=== PATIENT | female | born 1955 | race Caucasian/White ===

== ENCOUNTER 2022-03-06 11:11 | Outpatient (REF) | payer MEDICARE, SELFPAY ==
[2022-03-06 13:43] LABS: MANUAL DIFF FLAG NO
[2022-03-06 14:00] LABS: Basophils Absolute Auto 0.1 X10*3/uL (0.0-0.2); Basophils Percent Auto 1.1 % (0-2); Eosinophils Absolute Auto 0.2 X10*3/uL (0.0-0.4); Eosinophils Percent Auto 2.3 % (0-4); Hematocrit 47.3 % (37.0-47.0); Hemoglobin 15.1 g/dl (12.0-16.0); Imm Gran Abs Auto 0.04 X10*3/uL (0.00-0.03); Imm Gran Pct Auto 0.4 % (0.0-0.4); Lymphocytes Absolute Auto 2.3 X10*3/uL (1.2-4.9); Lymphocytes Percent Auto 22.4 % (20-40); Mean Corpuscular HGB Conc 31.9 g/dl (31.0-35.0); Mean Corpuscular Hemoglobin 28.9 pg (27.0-33.0); Mean Corpuscular Volume 90.4 fL (80.0-98.0); Mean Platelet Volume 11.6 fL (9.4-12.3); Monocytes Absolute Auto 0.6 X10*3/uL (0.1-1.2); Monocytes Percent Auto 5.8 % (2-11); Neutrophils Absolute Auto 6.9 x10*3/uL (2.0-8.3); Platelet Count 358 X10*3/uL (160-400); Red Blood Count 5.23 X10*6/uL (4.20-5.50); Red Cell Distribution Width 12.2 % (11.0-16.0); White Blood Count 10.1 X10*3/uL (4.8-10.8)
[2022-03-06 14:08] LABS: Alanine Aminotransferase 42 U/L (0-31); Albumin Level 4.5 g/dL (3.5-5.0); Alkaline Phosphatase 82 U/L (39-117); Anion Gap 15 (12-20); Aspartate Amino Transferase 29 U/L (5-31); Bilirubin Total 0.6 mg/dL (0.0-1.0); Blood Urea Nitrogen 10 mg/dL (9-16); Calcium 10.3 mg/dL (8.4-10.2); Carbon Dioxide 30 mmol/L (22-29); Chloride 101 mmol/L (96-108); Cholesterol 251 mg/dL; Estimated Glomerular Filt Rate > 60; Glucose Random 211 mg/dL (60-115); HDL Cholesterol 41 mg/dL; LDL Cholesterol Calculated 174 mg/dl; Potassium 4.9 mmol/L (3.3-5.1); Sodium 141 mmol/L (135-145); Total Protein 7.4 g/dL (6.5-8.0); Triglycerides 183 mg/dL
[2022-03-06 14:22] LABS: Thyroid Stimulating Hormone 1.47 uIU/mL (0.32-4.0); Vitamin D 25-OH Total 15.2 ng/mL (>30)
[2022-03-06 14:42] LABS: Vitamin B12 589 pg/mL (200-900)
== END 2022-03-06 11:12 | disposition home or self-care (01) ==
LOC: HO.MANLDS 11:11
PROVIDERS: Visit Provider Internal Medicine
DX: Z00.00 Encounter for general adult medical examination without abnormal findings (principal)
CPT/HCPCS: 36415; 80053; 80061; 82306; 82607; 84443; 85025

== ENCOUNTER 2022-03-09 11:17 | Outpatient (REF) | payer MEDICARE, SELFPAY ==
[2022-03-09 14:14] LABS: Estimated Average Glucose 197 mg/dL; Hemoglobin A1c % 8.5 %
== END 2022-03-09 11:18 | disposition home or self-care (01) ==
LOC: HO.MANLDS 11:17
PROVIDERS: Visit Provider Internal Medicine
DX: R73.9 Hyperglycemia, unspecified (principal)
CPT/HCPCS: 36415; 83036

== ENCOUNTER 2022-04-18 12:04 | Outpatient (REF) | payer MEDICARE, SELFPAY ==
[2022-04-18 14:12] LABS: Estimated Average Glucose 171 mg/dL; Hemoglobin A1c % 7.6 %
== END 2022-04-18 12:05 | disposition home or self-care (01) ==
LOC: HO.MANLDS 12:04
PROVIDERS: Visit Provider Internal Medicine
DX: E11.9 Type 2 diabetes mellitus without complications (principal)
CPT/HCPCS: 36415; 83036

== ENCOUNTER 2022-11-07 10:09 | Outpatient (REF) | payer MEDICARE, SELFPAY ==
[2022-11-07 10:55] LABS: Estimated Average Glucose 174 mg/dL; Hemoglobin A1c % 7.7 %
[2022-11-07 11:29] LABS: Alanine Aminotransferase 27 U/L (0-31); Alkaline Phosphatase 68 U/L (39-117); Anion Gap 10 (12-20); Aspartate Amino Transferase 14 U/L (5-31); Bilirubin Total 0.6 mg/dL (0.0-1.0); Blood Urea Nitrogen 12 mg/dL (9-16); Calcium 9.9 mg/dL (8.4-10.2); Carbon Dioxide 32 mmol/L (22-29); Chloride 102 mmol/L (96-108); Estimated Glomerular Filt Rate > 60; Glucose Random 188 mg/dL (60-115); Potassium 4.5 mmol/L (3.3-5.1); Sodium 139 mmol/L (135-145); Total Protein 6.4 g/dL (6.5-8.0)
[2022-11-07 11:51] LABS: Free T4 (Free Thyroxine) 1.07 ng/dL (0.71-1.85); Thyroid Stimulating Hormone 1.23 uIU/mL (0.32-4.0)
== END 2022-11-07 10:10 | disposition home or self-care (01) ==
LOC: HO.10HDL 10:09
PROVIDERS: Visit Provider Internal Medicine
DX: E11.9 Type 2 diabetes mellitus without complications (principal); E03.9 Hypothyroidism, unspecified
CPT/HCPCS: 36415; 80053; 83036; 84439; 84443

== ENCOUNTER 2023-02-06 12:50 | Outpatient (REF) | payer MEDICARE, SELFPAY ==
[2023-02-06 18:19] LABS: Thyroid Stimulating Hormone 1.04 uIU/mL (0.32-4.0)
[2023-02-07 05:24] LABS: Estimated Average Glucose 128 mg/dL; Hemoglobin A1c % 6.1 %
== END 2023-02-06 12:51 | disposition home or self-care (01) ==
LOC: HO.MANLDS 12:50
PROVIDERS: Visit Provider Internal Medicine
DX: R73.9 Hyperglycemia, unspecified (principal); E03.9 Hypothyroidism, unspecified
CPT/HCPCS: 36415; 83036; 84443

== ENCOUNTER 2024-09-30 15:32 | Outpatient (REF) | payer MEDICARE, SELFPAY ==
--- OUTSIDE RECORDS SUMMARY | 2024-09-30 17:28 | XMS_ITS | Data Portability ---
Author Organization [facility] Home Service Address [address] [place] [address] Assessment Encounter Date Assessment Date Assessment LastModified by Organization Details LastModified Time 08/15/2022 08/15/2022 [id number] [place] [id number] ([employer]PER[employer]) MDM MODERATE MUST MEET 2 OUT OF 3 ELEMENTS: PROBLEMS, DATA OR RISK ELEMENT 1: PROBLEMS ADDRESSED 1 OR MORE CHRONIC ILLNESS WITH EXACERBATION OR 2 OR MORE STABLE CHRONIC ILLNESSES OR 1 UNDIAGNOSED NEW PROBLEM OR 1 ACUTE ILLNESS W/SYMPTOMS OR 1 ACUTE COMPLICATED INJURY ELEMENT 2: DATA MUST MEET 1 OF 3 CATEGORIES CATEGORY 1: REVIEW OF PRIOR EXTERNAL NOTES, REVIEW OF RESULTS, ORDERING OF EACH TEST, ASSESSMENT REQUIRING INDEPENDENT HISTORIAN OR CATEGORY 2: INDEPENDENT INTERPRETATION OF TESTS BY ANOTHER PHYSICIAN OR SPECIALIST OR CATEGORY 3: DISCUSSION OF MGT OR TEST INTERPRETATION W/EXTERNAL PHYSICIAN OR SPECIALIST ELEMENT 3: RISK RISK OF COMPLICATIONS AND/OR MORBIDITY OR MORTALITY OF PATIENT MANAGEMENT PROVIDER MUST THOROUGHLY DOCUMENT EACH ELEMENT THAT IS COVERED Not available 08/15/2022 12:35:04 09/17/2022 09/17/2022 [id number] [place] [id number] ([employer]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 REVIEW OF PRIOR EXTERNAL NOTES/RESULTS, ORDERING OF TEST(S) CATEGORY 2. 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 REVIEW OF PRIOR EXTERNAL NOTES/RESULTS, ORDERING OF TEST(S) CATEGORY 2. 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 REVIEW OF PRIOR EXTERNAL NOTES/RESULTS, ORDERING OF TEST(S) CATEGORY 2. 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) MDM MODERATE MUST MEET 2 OUT OF 3 ELEMENTS: PROBLEMS, DATA OR RISK ELEMENT 1: PROBLEMS ADDRESSED 1 OR MORE CHRONIC ILLNESS WITH EXACERBATION OR 2 OR MORE STABLE CHRONIC ILLNESSES OR 1 UNDIAGNOSED NEW PROBLEM OR 1 ACUTE ILLNESS W/SYMPTOMS OR 1 ACUTE COMPLICATED INJURY ELEMENT 2: DATA MUST MEET 1 OF 3 CATEGORIES CATEGORY 1: REVIEW OF PRIOR EXTERNAL NOTES, REVIEW OF RESULTS, ORDERING OF EACH TEST, ASSESSMENT REQUIRING INDEPENDENT HISTORIAN OR CATEGORY 2: INDEPENDENT INTERPRETATION OF TESTS BY ANOTHER PHYSICIAN OR SPECIALIST OR CATEGORY 3: DISCUSSION OF MGT OR TEST INTERPRETATION W/EXTERNAL PHYSICIAN OR SPECIALIST ELEMENT 3: RISK RISK OF COMPLICATIONS AND/OR MORBIDITY OR MORTALITY OF PATIENT MANAGEMENT PROVIDER MUST THOROUGHLY DOCUMENT EACH ELEMENT THAT IS COVERED Not available 02/06/2023 12:23:35 01/17/2024 01/17/2024 [id number] [place] [id number] ([employer]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 REVIEW OF PRIOR EXTERNAL NOTES/RESULTS, ORDERING OF TEST(S) CATEGORY 2. ASSESSMENT REQUIRING INDEPENDENT HISTORIAN(S) INCLUDE WHO THE HISTORIAN IS AND RELATION TO PT AND WHY PT IS UNABLE TO GIVE COMPLETE HISTORY ELEMENT 3: RISK (LOW) RISK OF COMPLICATIONS AND/OR MORBIDITY OR MORTALITY OF PATIENT MANAGEMENT PROVIDER MUST THOROUGHLY DOCUMENT ALL OF THE ELEMENTS COVERED Not available 01/17/2024 15:47:00 Plan of Treatment Reminders Order Date Submit Date Provider Last Modified By Organization Details Last Modified Time Details Appointments FOLLOW UP 15 2024 04:15P Angela LOPEZ Not available Not available Not available Lab HbA1c (hemoglob in A1c), blood 2022 023 [facility], [address] [place] [address], [id number], 02/07/2023 11:54:45 HbA1c (hemoglob in A1c), blood 2022 023 [facility], [address] [place] [address], [address], 02/07/2023 11:54:45 TSH, serum or plasma 2022 023 [facility], [address] [place] [address], [address], 02/06/2023 12:25:25 HbA1c (hemoglob in A1c), blood 2022 023 [facility], [address] [place] [address], [address], 11/09/2022 12:45:23 HbA1c (hemoglob in A1c), blood 2022 023 [facility], [address] [place] [address], [place], [address], 11/07/2022 12:15:04 CMP, serum or plasma 2022 023 [facility], [address] [place], [address], 11/08/2022 13:06:35 TSH + free T4, serum 2022 023 [facility], [address] [place] [address], [address], 11/08/2022 13:06:36 Referral orthopedi c surgeon referral 2022 023 [email or web address] 10 Robb Akhtar MD, [address] [place], [address], 04/12/2023 14:58:42 Procedures None recorded. Surgeries None recorded. Imaging CT, heart, w/o contrast, w/ coronary calcium score 2022 023 [facility], [address] [place], [address], 02/06/2023 12:09:29 Medication Orders glimepiri de 4 mg tablet 2022 023 [facility], [address] [place] [address], [address], 11/09/2022 12:38:28 Patient TargetsNo targets recorded. Patient Instructions Encounter Date Encounter Id Patient Instructions Last Modified By Organization Details Last Modified Time 08/15/2022 [id number] hypothyroidism: care instructions Not available 08/15/2022 12:38:26 02/06/2023 [id number] learning about high blood sugar Not available 02/06/2023 12:22:09 hypothyroidism: care instructions Not available 02/06/2023 12:22:09 01/17/2024 [id number] knee arthritis: care instructions Not available 01/17/2024 15:47:07 Reason for Referral Orthopedic Surgeon Referral for Osteoarthritis of joint of right shoulder region Referring Physician: Ernie Lopez, Internal Medicine, Encounter Date: 02/06/2023 Results Created Date Observation Date Name Description Value Unit Range Abnormal Flag Note LastModifiedBy Organization Detail LastModifiedTime 03/29/2003/29/2023 CT, heart , w/o contr ast, w/ coron sharad calci um score No observ ation record ed. [facility] [address] [place], [address], 03/31/2023 15:04:37 04/24/20 23 04/24/2023 MAMMO , scree steve, digit al, bilat eral No observ ation record ed. [email or web address] [facility] [address] [place], [address], 04/24/2023 16:17:20 Result Notes None recorded. Problems Name Problem SNOMED Code Status Onset Date Resolution Date Notes Provider Name and Address Organization Details Recorded Time Vitamin D deficien cy 55862380 Active [address] [facility] Internal [facility] 5 10:29:51 Degenera tion of cervical interver tebral disc 05677559 Active 2018 Karlee [address] [facility] 5 10:29:51 Osteoart hritis of knee 062118630 Active 2018 Karlee cha [facility] 5 10:29:51 Fracture of tibia AND fibula 288125478 Active 2018 Ernie Lopez, [address] [place] [address], [address], [facility] 9 12:27:09 Degenera tion of lumbar interver tebral disc 33876655 Active 2019 Ernie Lopez DO [address] [place] [address], [address], [facility] 0 11:42:26 Mood disorder 68839715 Active 2020 Ernie Lopez, [address], [address], [facility] 1 16:51:28 COVID-19 886914188 Completed 202103/06/2022 Ernie Lopez, [address] [place] [address], [address], [facility] 2 10:51:05 Hypothyr oidism 45908496 Active 2021 [facility] 10:29:51 Hypergly cemia 00467234 Active 2021 [facility] 5 10:29:51 Type 2 diabetes mellitus 73130717 Active 2021 [facility] 5 10:29:51 Diabetes mellitus 35573649 Active 2021 [facility] 5 10:29:51 Injury of rotator cuff 207139004 Active 2022 Ernie Lopez DO [address] [place] [address], [address], [facility] 3 13:57:48 Degenera tive joint disease of shoulder region 32778690 Active 2022 [facility] 5 10:29:51 Osteoart hritis of joint of right shoulder region 50025097178 9100 Active 2022 [facility] 5 10:29:51 Problem Notes None recorded. Procedures Surgical History Date Name Laterality Status Provider Name and Address Organization Details Recorded Time 024 Corticosteroid Injection completed Ernie Lopez DO [address] [place] [address], [address], [facility] 01/17/2024 15:53:24 023 Colonoscopy completed Addy Lopez [facility] 12/28/2022 15:19:27 023 Corticosteroid Injection completed Ernie Lopez DO [address] [place], [address], [facility] 09/17/2022 13:58:29 021 Corticosteroid Injection completed Ernie Lopez DO [address] [place] [address], [address], [facility] 04/28/2021 16:42:04 020 Corticosteroid Injection completed Ernie Lopez DO [address] [place] [address], [address], [facility] 05/09/2020 16:39:17 020 Corticosteroid Injection completed Ernie Lopez DO [address] [place] [address], [address], [facility] 04/20/2020 14:21:04 019 Corticosteroid Injection completed Ernie Lopez DO [address] [place] [address], [address], [facility] 12/10/2018 15:30:32 019 Corticosteroid Injection completed Ernie Lopez DO [address] [place] [address], [address], [facility] 11/14/2018 15:35:54 Imaging Results Imaging Date Name Status LastModified by Organiz ation Details LastModified Time 03/29/2023 CT, heart, w/o contrast, w/ coronary calcium score completed [facility] [address] [place], [address], 03/31/2023 15:04:37 04/24/2023 MAMMO, screening, digital, bilateral completed [email or web address] [facility] [address] [place], [address], 04/24/2023 16:17:20 Procedure Notes None recorded. Medical Equipment None Reported. Allergies Allergen ID Allergen Name Allergen Category Reaction Reaction Severity Criticality Documentation Date Start Date Code Code System Note Provider Name and Address Organization Details Recorded Time 2804 erythromy barry medicatio n Not available Not available Not available 08/08/2018 4053 RxNorm Edilma cha [place] - [facility] 9 09:26:48 Medications Name Sig Start Date Stop Date Status Note LastModified by Organization Details LastModified Time amoxicillin 500 mg capsule TAKE 1 CAPSULE BY MOUTH THREE TIMES DAILY FOR 10 DAYS 04/14 completed Not Available Not Available Not Available hydrocodone 7.5 mg-ibuprofe n 200 mg tablet Take 1 tablet every 4 hours by oral route with meals for 7 days. 03/06 completed Not Available Not Available Not Available azithromyci n 250 mg tablet TAKE 2 TABLETS (500 MG) BY ORAL ROUTE ONCE DAILY FOR 1 DAY THEN 1 TABLET (250 MG) BY ORAL ROUTE ONCE DAILY FOR 4 DAYS 08/15 completed Not Available Not Available Not Available valacyclovi r 1 gram tablet Take 1 tablet every 12 hours by oral route for 7 days. 03/21 completed Not Available Not Available Not Available hydrocodone 5 mg-acetamin ophen 325 mg tablet TAKE 1 TABLET BY MOUTH EVERY 6 HOURS NEEDED FOR 7 DAYS 02/08 completed Not Available Not Available Not Available clobetasol 0.05 % topical cream APPLY A THIN LAYER TO THE AFFECTED AREA(S) BY TOPICAL ROUTE 2 TIMES PER DAY 04/20 completed Not Available Not Available Not Available tramadol 50 mg tablet TAKE 2 TABLETS BY MOUTH EVERY 6 HOURS NEEDED 2024 active Not Available Not Available Not Avai lable levothyroxi ne 75 mcg tablet TAKE 1 TABLET BY MOUTH EVERY DAY active Not Available Not Available No t Available cefadroxil 500 mg capsule 08/08 completed Not Available Not Available Not Available oxycodone-a cetaminophe n 5 mg-325 mg tablet 08/08 completed Not Available Not Available Not Available hydromorpho ne 2 mg tablet 08/08 completed Not Available Not Available Not Available ciprofloxac in 0.3 % eye drops INSTILL 4 DROPS INTO AFFECTED EAR TWICE DAILY FOR 10 DAYS 02/06 completed Not Available Not Available Not Available OneTouch Ultra Test strips USE DIRECTED TO CHECK GLUCOSE DAILY active Not Available Not Available No t Available hydrocodone 7.5 mg-acetamin ophen 325 mg tablet TAKE 1 TABLET BY MOUTH EVERY 6 HOURS FOR 7 DAYS 10/14 completed Not Available Not Available Not Available cephalexin 500 mg capsule TAKE 1 CAPSULE BY MOUTH FOUR TIMES A DAY FOR 10 DAYS active Not Available Not Available No t Available triamcinolo ne acetonide 0.1 % topical ointment APPLY OINTMENT TOPICALLY TWICE DAILY TO AREAS OF ECZEMA ON TRUNK/EXT REMITIES UP TO 2 WEEKS ON, 1 WEEK OFF. CAN REPEAT OFF WEEK. NOT FOR FACE/GROI N,BODY FOLDS active Not Available Not Available No t Available Gentle Laxative (bisacodyl) 5 mg tablet,bessie yed release TAKE 2 TABLETS BY MOUTH RIGHT BEFORE FIRST DOSE OF LIQUID PREP active Not Available Not Available No t Available glimepiride 4 mg tablet TAKE 1 TABLET BY MOUTH EVERY DAY 2024 active Not Available Not Available Not Avai lable diclofenac sodium 75 mg tablet,bessie yed release Take 1 tablet twice a day by oral route for 30 days. 08/15 completed Not Available Not Available Not Available ibuprofen 600 mg tablet 04/20 completed Not Available Not Available Not Available methylpredn isolone 4 mg tablets in a dose pack take as directed 08/15 completed Not Available Not Available Not Available SSD 1 % topical cream 04/20 completed Not Available Not Available Not Available ketoconazol e 2 % topical cream APPLY TO THE AFFECTED AREA(S) BY TOPICAL ROUTE ONCE DAILY 04/20 completed Not Available Not Available Not Available oxycodone 5 mg tablet TAKE 1 TABLET BY MOUTH EVERY 4 HOURS NEEDED FOR PAIN 08/15 completed Not Available Not Available Not Available Vitamin D3 25 mcg (1,000 unit) capsule Take 1 capsule every day by oral route. 02/08 completed Not Available Not Available Not Available rosuvastati n 10 mg tablet TAKE 1 TABLET BY MOUTH EVERY DAY FOR 30 DAYS active Not Available Not Available No t Available duloxetine 30 mg capsule,del ayed release TAKE 1 CAPSULE BY MOUTH EVERY DAY ALONG WITH 60MG CAPSULE DAILY active Not Available Not Available No t Available duloxetine 60 mg capsule,del ayed release TAKE 1 CAPSULE BY MOUTH EVERY DAY active Not Available Not Available No t Available oxycodone 10 mg tablet Take 1 tablet every 4 hours by oral route with meals for 7 days. 03/06 completed Not Available Not Available Not Available GaviLyte-G 236 gram-22.74 gram-6.74 gram-5.86 gram oral solution TAKE DIRECTED FOLLOW INSTRUCTI ONS GIVEN BY OFFICE active Not Available Not Available No t Available sodium,pota ssium,mag sulfates 17.5 gram-3.13 gram-1.6 gram oral soln TAKE DIRECTED SEE ADMIN INSTRUCTI ONS FOR 2 DOSES active Not Available Not Available No t Available OneTouch Ultra2 Meter USE DIRECTED TO CHECK GLUCOSE DAILY active Not Available Not Available No t Available OneTouch Delica Plus Lancet 33 gauge USE DIRECTED TO CHECK GLUCOSE DAILY DIRECTED active Not Available Not Available No t Available Rybelsus 3 mg tablet Take 1 tablet every day by oral route for 30 days. 08/15 completed Not Available Not Available Not Available Vitals Date Recorded Body height Body mass index (BMI) Body weight Heart rate Oxygen saturation Oxygen saturation in Arterial blood by Pulse oximetry Systolic blood pressure Diastolic blood pressure Provider Name and Address Organization Details Last Updated DateTime 3 159.39 cm 28.2 kg/m2 05647.3 1 g 76 /min 97 % 97 % 138 mm[Hg] 92 mm[Hg] Ernie Lopez, DO [address] [place], [address] [place] [address] Internal Medicine 3 12:21:19 Date Recorded Body height Body mass index (BMI) Body weight Heart rate Oxygen saturation Oxygen saturation in Arterial blood by Pulse oximetry Systolic blood pressure Diastolic blood pressure Provider Name and Address Organization Details Last Updated DateTime 3 159.39 cm 28.7 kg/m2 93254.3 7 g 77 /min 97 % 97 % 120 mm[Hg] 72 mm[Hg] Kristin Roth [facility] 3 12:05:23 Date Recorded Body height Body mass index (BMI) Body weight Heart rate Oxygen saturation Oxygen saturation in Arterial blood by Pulse oximetry Systolic blood pressure Diastolic blood pressure Provider Name and Address Organization Details Last Updated DateTime 3 159.39 cm 28.7 kg/m2 29821.3 7 g 78 /min 97 % 97 % 128 mm[Hg] 60 mm[Hg] Kristin Roth [facility] Internal [facility] 3 11:56:54 Social History Question Answer Notes LastModified by Organizat ion Details LastModified Time Tobacco Smoking Status Former [facility]08[facility]2018 11:56:13 What Was The Date Of Your Most Recent Tobacco Screening? 02/06/2023 [email or web address] Information not available 02/06/2023 Do You Or Have You Ever Used Any Other Forms Of Tobacco Or Nicotine? No [email or web address] Information not available 11/09/2022 Sex: Female Functional Status None recorded. Mental Status None recorded. Family History Nothing Reported. Medical History No medical history recorded. Gynecological HistoryNo gynecological history recorded. Obstetrics History GPAL:G 0 P 0 0 0 0 Immunizations Vaccine Type Date Status Note Provider Nam e and Address Organization Details Recorded Time COVID-19, mRNA, LNP-S, PF, 100 mcg/0.5mL dose or 50 mcg/0.25mL dose 1 completed Ernie Lopez [address], [address], [facility] 02/08/2021 12:03:56 COVID-19, mRNA, LNP-S, PF, 100 mcg/0.5mL dose or 50 mcg/0.25mL dose 1 completed Ernie Lopez DO [address] [place] [address], [address], [facility] 02/08/2021 12:04:01 Influenza, split virus, quadrivalent, preservative 8 completed [facility] 08/08/2018 11:56:08 Past Encounters Encounter ID Performer Location Encounter Start Date Encounter Closed Date Diagnosis/Indication Diagnosis SNOMED-CT Code Diagnosis ICD10 Code Diagnosis Note [id number] Ernie Lopez [facility] [address] [facility],[place] [place] [address] 08/08/2018 11:46:35 08/08/2018 12:34:22 Renewal of prescription 951919751 Z76.0 Fracture o f tibia AND fibula 458187692 S82.91XA will need to cont prn tramadol awaiting insur prior auth also will neeed to have her try oral cannabinoi ds for chronic pain Ernie oLpez [facility] [address] [facility],[place] [address] 10/27/2018 15:34:57 10/28/2018 08:58:27 Nummular eczema 56239449 L30.0 or tinea will tx for both Tinea corporis 07453672 B35.4 keto and halobetaso l Ernie CastilloSharon Lopez [facility] [address] [facility],[place] [address] 11/14/2018 14:45:23 11/14/2018 15:30:20 Osteoarthritis of knee 987272969 M17.11 derrek inj ordered will have to set up for left knee [id number] Ernie Lopez [facility] [address] [facility],[place] [address] 12/10/2018 14:56:51 12/10/2018 15:34:16 Adult health examination 547973060 Z00.00 Active or passive immunization 284940824 Z23 utd Osteoarthr itis of knee 586624962 M17.11 derrek inj done for left knee [id number] Ernie Lopez [facility] [address] [facility],[place] [address] [address] 09/01/2019 11:04:37 09/01/2019 11:54:34 Osteoarthritis of knee 069945883 M17.11 derrek inj done for left knee prn Fracture o f tibia AND fibula 611850162 S82.91XA will need to cont prn tramadol awaiting insur prior auth also will neeed to have her try oral cannabinoi ds for chronic pain Degenerati on of cervical intervertebral disc 19079081 M50.30 cont her PT exercises and heat as Degenerati on of lumbar intervertebral disc 89995084 M51.36 will cont exercises careful use of her Nsaids due to GI and BP issues with her in the past [id number] Ernie Lopez [facility] [address] [facility] [address],[place] [address] 04/20/2020 14:08:16 04/20/2020 14:34:51 Osteoarthritis of knee 387628448 M17.11 derrek inj done for right knee prn [id number] Ernie Mclaughlinnelly [facility] [address] [facility] [address],[place] [address] 05/09/2020 16:22:03 05/10/2020 09:01:55 Osteoarthritis of knee 391832216 M17.11 derrek inj done for left knee well tolerated [id number] Ernie Mclaughlinnelly [facility] [address] [facility] [address],[place] [address] 02/08/2021 11:52:47 02/08/2021 14:33:29 Acute otitis media 4028750 H66.91 [id number] Ernie Kim Lopez [facility] [address] [facility] [address] [address] 04/14/2021 16:27:37 04/14/2021 16:57:09 Rupture of rotator cuff of right shoulder 7377598218 8918574 M75.101 Mood disorder 51162344 F 40 we will increase the duloxetine but if unhelpful we could add bupropion [id number] Ernie Lopez [facility] [address] [facility] [address],[place] [address] 04/28/2021 16:30:49 05/01/2021 08:21:22 Pain of right shoulder joint 5337073527 8408670 M25.511 [place] [id number] Ernie Lopez [facility] [address] [facility] [address],[place] [address] 03/06/2022 10:35:11 03/06/2022 12:59:25 Active or passive immunization 568813835 Z23 utd Adult heal th examination 048209576 Z00.00 actually doing quite wellhas dm set upgetting [facility] in [place] 49297049 E03.9 will refill now Mood disorder 69330063 F 40 doing ok with 90 mg of duloxetine [id number] Ernie Lopez [facility] [address] [facility],[place] [address] 03/21/2022 12:00:09 03/21/2022 14:22:59 Type 2 diabetes mellitus 33689064 E11.9 we have discussed will monitor sugar daily rech 4 weeks Diabetes mellitus 487997 09 E11.9 [id number] Ernie [facility] [address] [facility],[place] [address] 04/18/2022 12:07:02 04/18/2022 13:27:21 Type 2 diabetes mellitus 15927229 E11.9 she is skipping meals and feels tired and loggy and told her to eat small meals throughout the daywe will change her to jardiance 25m,g and the n rechk Hypothyroidism 61687821 E03.9 will refill now [id number] Ernie Lopez [facility] [address] [facility],[place] [address] 08/15/2022 12:15:44 08/15/2022 14:17:46 Type 2 diabetes mellitus 83385135 E11.9 jardiance worked well but insurance wont coverdid not tolerate the Rybelsus Mood disorder [id number] F 40 doing ok with 90 mg of duloxetine Hypothyroidism 39369775 E03.9 will refill now [id number] Ernie Lopez [facility] [address] [facility],[place] [address] 09/17/2022 13:50:04 09/17/2022 14:16:31 Injury of rotator cuff [id number] S46.001A [id number] Ernie Lopez [facility] [address] [facility],[place] [address] 11/09/2022 11:42:15 11/09/2022 13:37:45 Diabetes mellitus 31146995 E11.9 better but still up will start her on glimepirid e and rechk in 4 month [id number] Ernie Lopez [facility] [address] [facility],[place] [address] 02/06/2023 11:44:09 02/06/2023 12:30:59 Diabetes mellitus 94078191 E11.9 better but still up will start her on glimepirid e and rechk in 4 month Hyperglycemia 13986153 R 73.9 will check a1c non fasting is 211 lab is pending Hypothyroidism 11622465 E03.9 will refill now tsh Type 2 greta betes mellitus 05155666 E11.9 she is doing well on the glypizide Osteoarthr itis of joint of right shoulder region [id number] 15159 M19.011 having ongoing pain and is getting worse [id number] Ernie Lopez, [facility] [address] [facility],[place] [address] 01/17/2024 15:31:51 01/20/2024 17:02:52 Osteoarthritis of knee [id number] M17.11 derrek inj done for right knee well tolerated Health Concerns Section Related Observation LastModified by Organization Detai ls LastModified Time None Recorded Concern Status LastModified by Organization Details LastModified Time None Recorded Advance Directives Directive None Recorded Payers Encounter Date Sequence Insurance Name Policy Number Policy Prater Covered Member ID Prater Member ID Guarantor Name 08/15/2022 1 [employer] (MEDICARE REPLACEMENT HMO) [id number] Trena Gongora [id number] Trena Gongora 09/17/2022 1 [employer] (MEDICARE REPLACEMENT HMO) [id number] Trena Gongora [id number] Trena Gongora 11/09/2022 1 [employer] (MEDICARE REPLACEMENT HMO) [id number] Trena Gongora [id number] Trena Gongora 02/06/2023 1 [employer] (MEDICARE REPLACEMENT HMO) [id number] Trena Gongora [id number] Trena Gongora 01/17/2024 1 [employer] (MEDICARE REPLACEMENT HMO) [id number] Trena Gongora [id number] Trena Gongora Notes Date Note Type Note Provider Name a nd Address Organization Details Recorded Time 08/15/2022 text/html Diabetes F/UReported bypatient.Context:n ormal range of home blood sugars (in the low 100s); seeing eye doctor regularly; checking feet regularly Associated Symptoms:no weight gain; no weight loss; no dizziness; no sweats; no headaches; no confusion; no increased thirst; no increased appetite; no increased urination; no blurred vision; no numbness of feet; no calluses on feet here for dm follow up she states that she recently had a stapedectomyof left earthis was donedue to calcium build up of the bones and she did well with surgery and is actually hearing better now appetite goodsleep goodnoted glucose readings running mid 150-60's diff times of day Ernie Lopez DO [address] [place], [address], [facility] 08/15/2022 12:41:38 09/17/2022 text/html here for derrek in j to the right shoulderhaving very limited ROMno specific injury and this has gradually worsened over timenow having pain with any lifting and raising arms up over head Ernie Lopez DO [address] [place], [address], [facility] 09/17/2022 14:02:11 11/09/2022 text/html Diabetes F/UReported bypatient.Labs:last A1C result: 7.7 Context:normal range of home blood sugars (in the low 100s); seeing eye doctor regularly; checking feet regularly Associated Symptoms:no weight gain; no weight loss; no dizziness; no sweats; no headaches; no confusion; no increased thirst; no increased appetite; no increased urination; no blurred vision; no numbness of feet; no calluses on feet here for rechk and is doing ok overallhas been eating [id number] is now down to 7.7 from 8.5 Ernie Lopez DO [address] [place], [address], [facility] 11/09/2022 12:39:24 02/06/2023 text/html her for rechk an d is doing ok relates that she is noting her glypixide is helping bring her sugars downm she has noticeddoing ok overall Ernie Lopez DO [address] [place] [address], [id number], [facility] 02/06/2023 12:27:38 01/17/2024 text/html here for derrek in j to the right knee for known djd Ernie AnnaSharon Lopez DO [address] [place] [address], [id number], [facility] 01/17/2024 15:53:53 OBGyn Episode No OBEpisode recorded.
[2024-09-30 18:47] LABS: Alanine Aminotransferase 18 U/L (0-31); Albumin Level 4.1 g/dL (3.5-5.0); Alkaline Phosphatase 76 U/L (39-117); Aspartate Amino Transferase 18 U/L (5-31); Bilirubin Total 0.5 mg/dL (0.0-1.0); Blood Urea Nitrogen 13 mg/dL (9-16); Calcium 9.5 mg/dL (8.4-10.2); Carbon Dioxide 30 mmol/L (22-29); Chloride 102 mmol/L (96-108); Estimated Glomerular Filt Rate > 60; Glucose Random 203 mg/dL (60-115); Sodium 135 mmol/L (135-145); Total Protein 6.7 g/dL (6.5-8.0)
[2024-09-30 18:54] LABS: Anion Gap 9 (12-20)
[2024-09-30 19:01] LABS: Creatinine Urine 89.18 mg/dL; Microalbum/Creatinine Ratio Ur 23.5 ug/mg cr (<30)
[2024-09-30 19:05] LABS: Thyroid Stimulating Hormone 3.57 uIU/mL (0.32-4.0)
[2024-09-30 19:29] LABS: Vitamin B12 447 pg/mL (200-900)
[2024-10-01 06:34] LABS: Estimated Average Glucose 209 mg/dL; Hemoglobin A1C 258.4974 umol/L; Hemoglobin A1c % 8.9 % (<6.0); Total Hemoglobin (HGBA1C) 3496.6069 umol/L
[2024-10-05 13:12] LABS: VITAMIN D (1,25 OH) D3 40 pg/mL; Vit D (1,25-Dihydroxy) Total 40 pg/mL (18-72); Vitamin D (1,25 OH) D2 <8 pg/mL
== END 2024-09-30 15:33 | disposition home or self-care (01) ==
LOC: HO.MANLDS 15:32
PROVIDERS: Visit Provider Internal Medicine
DX: Z13.89 Encounter for screening for other disorder (principal)
CPT/HCPCS: 36415; 80053; 82043; 82570; 82607; 82652; 83036; 84436; 84443

== ENCOUNTER 2025-06-08 15:13 | Outpatient (REF) | payer MEDICARE, SELFPAY ==
[2025-06-08 18:20] LABS: MANUAL DIFF FLAG NO
[2025-06-08 18:24] LABS: Hematocrit 44.5 % (37.0-47.0); Hemoglobin 14.2 g/dl (12.0-16.0); Imm Gran Abs Auto 0.07 X10*3/uL (0.00-0.03); Imm Gran Pct Auto 0.4 % (0.0-0.4); Lymphocytes Absolute Auto 3.6 X10*3/uL (1.2-4.9); Mean Corpuscular HGB Conc 31.9 g/dl (31.0-35.0); Mean Corpuscular Hemoglobin 29.3 pg (27.0-33.0); Mean Corpuscular Volume 91.8 fL (80.0-98.0); NRBC Abs Auto 0.000 X10*3/uL (0.0-0.012); NRBC Pct Auto 0.0 /100WBC (0.0-0.2); Platelet Count 388 X10*3/uL (160-400); Red Blood Count 4.85 X10*6/uL (4.20-5.50); White Blood Count 16.7 X10*3/uL (4.8-10.8)
[2025-06-08 18:41] LABS: Alanine Aminotransferase 22 U/L (0-31); Albumin Level 4.5 g/dL (3.5-5.0); Alkaline Phosphatase 69 U/L (39-117); Anion Gap 13 (12-20); Aspartate Amino Transferase 25 U/L (5-31); Blood Urea Nitrogen 13 mg/dL (9-16); Calcium 9.3 mg/dL (8.4-10.2); Carbon Dioxide 27 mmol/L (22-29); Chloride 102 mmol/L (96-108); Cholesterol 147 mg/dL (<200); Estimated Glomerular Filt Rate > 60; HDL Cholesterol 45 mg/dL (>40); Potassium 3.4 mmol/L (3.3-5.1); Sodium 139 mmol/L (135-145); Total Protein 7.3 g/dL (6.5-8.0); Triglycerides 131 mg/dL (<150)
[2025-06-08 19:00] LABS: Thyroid Stimulating Hormone 3.09 uIU/mL (0.32-4.0)
[2025-06-08 19:06] LABS: Vitamin B12 547 pg/mL (200-900)
--- OUTSIDE RECORDS SUMMARY | 2025-06-08 19:29 | XMS_ITS | Data Portability ---
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 Lab vitamin D, 25-hydroxy , total, serum 2024 [facility], [address] [place] [address], [address], 5 16:40:35 vitamin B12, serum 2024 [facility], [address] [place] [address], [address], 5 16:40:35 hemoglobin A1c, QN, blood 2024 025 [facility], [address] [place] [address], [address], 5 16:40:35 CMP, serum or plasma 2024 [facility], [address] [place] [address], [address], 5 16:40:35 CBC w/ auto diff 2024 [facility], [address] [place] [address], [address], 5 16:40:35 microalbum in, urine 2024 [facility], [address] [place] [address], [address], 5 16:40:36 lipid panel, blood 2024 [facility], [address] [place] [address], [address], 5 16:40:35 TSH, serum or plasma 2024 025 [facility], [address] [place] [address], [address], 5 16:40:35 vitamin D, 25-hydroxy , total, serum 2024 025 [facility], [address] [place] [address], [address], 5 16:08:15 hemoglobin A1c, QN, blood 2024 025 [facility], [address] [place] [address], [address], 5 16:08:15 CMP, serum or plasma 2024 025 [facility], [address] [place] [address], [address], 5 16:08:15 lipid panel, blood 2024 025 [facility], [address] [place] [address], [address], 5 16:08:15 CBC w/ auto diff 2024 025 [facility], [address] [place] [address], [address], 5 16:08:15 microalbum in, urine 2024 025 [facility], [address] [place] [address], [address], 5 16:08:15 HbA1c (hemoglobi n A1c), blood 2022 023 [facility], [address] [place] [address] [place], [address], 3 11:54:45 HbA1c (hemoglobi n A1c), blood 2022 023 [facility], [address] [place] [address], [address], 3 11:54:45 TSH, serum or plasma 2022 023 [facility], [address] [place] [address], [address], 3 12:25:25 Referral orthopedic surgeon referral 2022 023 [email or web address] 10 Robb Akhtar MD, [address] [place], [address], 3 14:58:42 Procedures None recorded. Surgeries None recorded. Imaging None recorded. Medication Orders terbinafin e HCl 250 mg tablet 2024 025 [email or web address] [id number], [address] [place], [address], 5 16:07:42 Patient TargetsNo targets recorded. Patient Instructions Encounter Date Encounter Id Patient Instructions Last Modified By Organization Details Last Modified Time 02/06/2023 [id number] learning about high blood sugar Not available 02/06/2023 12:22:09 hypothyroidism: care instructions Not available 02/06/2023 12:22:09 01/17/2024 [id number] knee arthritis: care instructions Not available 01/17/2024 15:47:07 06/07/2025 [id number] hypothyroidism: care instructions Not available 06/07/2025 16:36:50 Reason for Referral Orthopedic Surgeon Referral for Osteoarthritis of joint of right shoulder region Referring Physician: Ernie Aguilera, Internal Medicine, Encounter Date: 02/06/2023 Results Created Date Observation Date Name Description Value Unit Range Abnormal Flag Note LastModifiedBy Organization Detail LastModifiedTime 03/29/2003/29/2023 CT, heart , w/o contr ast, w/ coron sharad calci um score No observ ation record ed. [facility] [address] [place], [address], 03/31/2023 15:04:37 04/24/20 23 04/24/2023 MAMMO , scree steve, digit al, bilat eral No observ ation record ed. [email or web address] [facility] [address], [place], [address], 04/24/2023 16:17:20 Result Notes None recorded. Problems Name Problem SNOMED Code Status Onset Date Resolution Date Notes Provider Name and Address Organization Details Recorded Time Vitamin D deficien cy 43067666 Active 2018 Karlee cha [facility] [place] 5 10:29:51 Degenera tion of cervical interver tebral disc 71878597 Active 2018 Karlee cha [facility] 5 10:29:51 Osteoart hritis of knee 537021208 [facility] 5 10:29:51 Fracture of tibia AND fibula 749023375 Active 2018 Ernie Aguilera, DO [address] [place] [address], [address], [facility] [place], [facility] 9 12:27:09 Degenera tion of lumbar interver tebral disc 01256479 Active 2019 Ernie Aguilera DO [address] [place] [address], [address], [place] [facility] 0 11:42:26 Mood disorder 57857836 Active 2020 Ernie Aguilera DO [address] [place] [address], [address], [facility] [place] 1 16:51:28 COVID-19 245791553 Completed 202103/06/2022 Ernie Aguilera DO [address] [place] [address], [address], [facility] 2 10:51:05 Hypothyr oidism 81569894 Active 2021 Karleeelio Mejía null, [facility] [place] 5 10:29:51 Hypergly cemia 23393173 Active 2021 Karleeelio Mejía null, [facility] [place] 5 10:29:51 Type 2 diabetes mellitus 44336568 Active 2021 Karleeelio Mejía null, [facility] [place] 5 10:29:51 Diabetes mellitus 61304542 Active 2021 Karleeelio Mejía null, [facility] [place] 5 10:29:51 Injury of rotator cuff 831001674 Active 2022 Ernie Aguilera DO [address] [place] [address], [address], [facility] 3 13:57:48 Osteoart hritis of shoulder region 43073730 Active 2022 Karleeelio Mejía null, [facility] [place] 5 10:29:51 Osteoart hritis of joint of right shoulder region 54191781713 9100 Active 2022 Karleeelio Mejía null, [facility] [place] 5 10:29:51 Onychomy cosis of toenails 889097830 Active 2024 Ernie Aguilera DO [address] [place] [address], [address], [facility] 5 16:04:52 Problem Notes None recorded. Procedures Surgical History Date Name Laterality Status Provider Name and Address Organization Details Recorded Time 024 Corticosteroid Injection completed Ernie Aguilera DO [address] [place] [address], [address], [facility] 01/17/2024 15:53:24 023 Colonoscopy completed Addy Aguilera [facility] 12/28/2022 15:19:27 023 Corticosteroid Injection completed Ernie CastilloSharon AleDO [address] [place] [address], [address], [facility] [place] Internal [facility] 09/17/2022 13:58:29 021 Corticosteroid Injection completed Ernie AguileraDO [address] [place] [address], [address], [facility] [place] Internal [facility] 04/28/2021 16:42:04 020 Corticosteroid Injection completed Ernie CastilloSharon AleDO [address] [place] [address], [address], [facility] [place] Internal [facility] 05/09/2020 16:39:17 020 Corticosteroid Injection completed Ernie AguileraDO [address] [place] [address], [address], [facility] [place] Internal [facility] 04/20/2020 14:21:04 019 Corticosteroid Injection completed Ernie AnnaSharon AleDO [address] [place] [address], [address], [facility] [place] Internal [facility] 12/10/2018 15:30:32 019 Corticosteroid Injection completed Ernie AguileraDO [address] [place] [address], [address], [facility] [place] Internal [facility] 11/14/2018 15:35:54 Imaging Results None recorded. Procedure Notes None recorded. Medical Equipment None Reported. Allergies Allergen ID Allergen Name Allergen Category Reaction Reaction Severity Criticality Documentation Date Start Date Code Code System Note Provider Name and Address Organization Details Recorded Time 2804 erythromy barry medicatio n Not available Not available Not available 08/08/2018 4053 [facility] 9 09:26:48 Medications Name Sig Start Date Stop Date Status Note LastModified by Organization Details LastModified Time amoxicillin 500 mg capsule TAKE 1 CAPSULE BY MOUTH THREE TIMES DAILY FOR 10 DAYS 04/14 completed Not Available Not Available Not Available metformin 500 mg tablet TAKE 1 TABLET BY MOUTH TWICE A DAY 10/20 completed Not Available Not Available Not Available [...] TABLETS BY MOUTH EVERY 6 HOURS NEEDED active Not Available Not Available No t Available levothyroxi ne 75 mcg tablet TAKE 1 TABLET BY MOUTH EVERY DAY active Not Available Not Available No t Available cefadroxil 500 mg capsule 08/08 completed Not Available Not Available Not Available oxycodone-a cetaminophe n 5 mg-325 mg tablet 08/08 completed Not Available Not Available Not Available terbinafine HCl 250 mg tablet TAKE 1 TABLET BY MOUTH EVERY DAY FOR 30 DAYS 06/07 completed Not Available Not Available Not Available hydromorpho ne 2 mg tablet 08/08 completed Not Available Not Available Not Available ciprofloxac in 0.3 % eye drops INSTILL 4 DROPS INTO AFFECTED EAR TWICE DAILY FOR 10 DAYS 02/06 completed Not Available Not Available Not Available Piki Ultra Test strips USE DIRECTED TO CHECK GLUCOSE DAILY active Not Available Not Available No t Available hydrocodone 7.5 mg-acetamin ophen 325 mg tablet TAKE 1 TABLET BY MOUTH EVERY 6 HOURS FOR 7 DAYS 10/14 completed Not Available Not Available Not Available cephalexin 500 mg capsule TAKE 1 CAPSULE BY MOUTH FOUR TIMES A DAY FOR 10 DAYS 02/02 completed Not Available Not Available Not Available triamcinolo ne acetonide 0.1 % topical [...] RIGHT BEFORE FIRST DOSE OF LIQUID PREP 02/02 completed Not Available Not Available Not Available glimepiride 4 mg tablet TAKE 1 TABLET BY MOUTH EVERY DAY 06/07 completed Not Available Not Available Not Available diclofenac sodium 75 mg tablet,bessie yed release [...] DIRECTED FOLLOW INSTRUCTI ONS GIVEN BY OFFICE 02/02 completed Not Available Not Available Not Available sodium,pota ssium,mag sulfates 17.5 gram-3.13 gram-1.6 gram oral soln TAKE DIRECTED SEE ADMIN INSTRUCTI ONS FOR 2 DOSES 06/07 completed Not Available Not Available Not Available Invokana 300 mg tablet Take 1 tablet every day by oral route. 2024 active Not Available Not Available Not Avai lable Farxiga active Not Available Not Avail able Not Available Jardiance 25 mg tablet 1 po qd 2024 active Not Available Not Available Not Avai lable OneTouch Ultra2 Meter USE DIRECTED TO CHECK [...] (BMI) Body weight Heart rate Oxygen saturation Systolic And Diastolic Provider Name and Address Organization Details Last Updated DateTime 5 157.48 cm 29.3 kg/m2 26480.7 8 g 76 /min 98 % 138/80 mm[Hg] Kristin Roth [facility] 5 16:09:02 Date Recorded Body height Body mass index (BMI) Body weight Oxygen saturation Heart rate Systolic And Diastolic Provider Name and Address Organization Details Last Updated DateTime 5 157.48 cm 29.5 kg/m2 28392.0 9 g 97 % 83 /min 116/68 mm[Hg] DALTON SCHWARTZ [facility] 5 15:53:58 Date Recorded Body height Body mass index (BMI) Body weight Heart rate Oxygen saturation Systolic And Diastolic Provider Name and Address Organization Details Last Updated DateTime 3 159.39 cm 28.7 kg/m2 55755.3 7 g 78 /min 97 % 128/60 mm[Hg] Kristin Roth [facility] 3 11:56:54 Date Recorded Body height Body mass index (BMI) Body weight Heart rate Oxygen saturation Systolic And Diastolic Provider Name and Address Organization Details Last Updated DateTime 5 157.48 cm 28.7 kg/m2 63599.2 8 g 67 /min 98 % 146/60 mm[Hg] Isabela Hutchison [facility] 5 16:06:19 Social History Question Answer Notes LastModified by Organizat ion Details LastModified Time Tobacco Smoking Status [facility] 11:56:13 What Was The Date Of Your Most Recent Tobacco Screening? 06/07/2025 [email or web address] Information not available 06/07/2025 Sex: Female Functional Status Question Answer Note LastModified by Organization D etails LastModified Time Do you or have you ever used any other forms of tobacco or nicotine? No [email or web address] Information not available 11/09/2022 Mental Status None recorded. Family History Nothing Reported. Medical History No medical history recorded. Gynecological HistoryNo gynecological history recorded. Obstetrics History GPAL:G 0 P 0 0 0 0 Immunizations Vaccine Type Date Status Note Provider Nam e and Address Organization Details Recorded Time COVID-19, mRNA, LNP-S, PF, 100 mcg/0.5mL dose or 50 mcg/0.25mL dose 1 completed Ernie Aguilera DO [address] [place] [address], [address], [facility] 02/08/2021 12:03:56 COVID-19, mRNA, LNP-S, PF, 100 mcg/0.5mL dose or 50 mcg/0.25mL dose 1 completed Ernie Aguilera DO [address] [place] [address], [address], [facility] 02/08/2021 12:04:01 Influenza, split virus, quadrivalent, preservative 8 completed [facility]08[facility]2018 11:56:08 Past Encounters Encounter ID Performer Location Encounter Start Date Encounter Closed Date Diagnosis/Indication Diagnosis SNOMED-CT Code Diagnosis ICD10 Code Diagnosis IMO Codes Diagnosis Note [id number] Ernie Aguilera DO [facility] [address] [place] [address],[place] [address] 08/08/2018 11:46:35 08/08/2018 12:34:22 Renewal of prescription 628202277 Z76.0 Fracture o f tibia AND fibula 293194968 S82.91XA will need to cont prn tramadol awaiting insur prior auth also will neeed to have her try oral cannabinoi ds for chronic pain Ernie Aguilera [facility] [address] [facility] [address] [address] 10/27/2018 15:34:57 10/28/2018 08:58:27 Nummular eczema 20279026 L30.0 or tinea will tx for both Tinea corporis 86278511 B35.4 keto and halobetaso l Ernie Alvarez Ale [facility] [address] [facility] [address] [address] 11/14/2018 14:45:23 11/14/2018 15:30:20 Osteoarthritis of knee 591512980 M17.11 derrek inj ordered will have to set up for left knee [id number] Ernie Aguilera [facility] [address] [facility],[place] [address] 12/10/2018 14:56:51 12/10/2018 15:34:16 Adult health examination 892422293 Z00.00 Active or passive immunization 565474015 Z23 utd Osteoarthr itis of knee 256346940 M17.11 derrek inj done for left knee [id number] Ernie Aguilera [facility] [address] [facility] [address] [address] 09/01/2019 11:04:37 09/01/2019 11:54:34 Osteoarthritis of knee 759210246 M17.11 derrek inj done for left knee prn Fracture o f tibia AND fibula 054228161 S82.91XA will need to cont prn tramadol awaiting insur prior auth also will neeed to have her try oral cannabinoi ds for chronic pain Degenerati on of cervical intervertebral disc 64560728 M50.30 cont her PT exercises and heat as Degenerati on of lumbar intervertebral disc 54704248 M51.36 will cont exercises careful use of her Nsaids due to GI and BP issues with her in the past [id number] Ernie Aguilera [facility] [address] [facility] [address] [address] 04/20/2020 14:08:16 04/20/2020 14:34:51 Osteoarthritis of knee 387713037 M17.11 derrek inj done for right knee prn [id number] Ernie Aguilera [facility] [address] [facility] [address] [address] 05/09/2020 16:22:03 05/10/2020 09:01:55 Osteoarthritis of knee 778527869 M17.11 derrek inj done for left knee well tolerated [id number] Ernie Aguilera [facility] [address] [facility] [address] [address] 02/08/2021 11:52:47 02/08/2021 14:33:29 Acute otitis media 9207094 H66.91 [id number] Ernie Aguilera [facility] Internal [facility] [address] [facility],[place] [address] 04/14/2021 16:27:37 04/14/2021 16:57:09 Rupture of rotator cuff of right shoulder 1787386336 5704518 M75.101 Mood disorder 40935267 F 40 we will increase the duloxetine but if unhelpful we could add bupropion [id number] Ernie Aguilera [facility] [address] [facility] [address] [facility] [place] [address] 04/28/2021 16:30:49 05/01/2021 08:21:22 Pain of right shoulder joint 0312229762 2410991 M25.511 [place] [id number] Ernie Aguilera [facility] [address] [facility] [address] [facility] [place] [address] 03/06/2022 10:35:11 03/06/2022 12:59:25 Active or passive immunization 489808585 Z23 utd Adult heal th examination 102730572 Z00.00 actually doing quite wellhas dm set upgetting lab [facility] soon in may Hypothyroidism 10753998 E03.9 will refill now Mood disorder 21172324 F 40 doing ok with 90 mg of duloxetine [id number] Ernie Aguilera [facility] [address] [facility] [address] [address] 03/21/2022 12:00:09 03/21/2022 14:22:59 Type 2 diabetes mellitus 72394926 E11.9 we have discussed will monitor sugar daily rech 4 weeks Diabetes mellitus 273394 09 E11.9 [id number] Ernie Aguilera [facility] [address] [facility] [address] [address] 04/18/2022 12:07:02 04/18/2022 13:27:21 Type 2 diabetes mellitus 08760037 E11.9 she is skipping meals and feels tired and loggy and told her to eat small meals throughout the daywe will change her to jardiance 25m,g and the n rechk Hypothyroidism 19787740 E03.9 will refill now [id number] Ernie Aguilera [facility] [address] [facility],[place] [address] 08/15/2022 12:15:44 08/15/2022 14:17:46 Type 2 diabetes mellitus 16339846 E11.9 jardiance worked well but insurance wont coverdid not tolerate the Rybelsus Mood disorder 63467419 F 40 doing ok with 90 mg of duloxetine Hypothyroidism 53817505 E03.9 will refill now [id number] Ernie Aguilera [facility] [address] [facility] [address] [address] 09/17/2022 13:50:04 09/17/2022 14:16:31 Injury of rotator cuff 177225308 S46.001A [id number] Ernie Aguilera [facility] [address] [facility] [address] [address] 11/09/2022 11:42:15 11/09/2022 13:37:45 Diabetes mellitus 31288279 E11.9 better but still up will start her on glimepirid e and rechk in 4 month [id number] Ernie Aguilera [facility] [address] [facility] [address] [address] 02/06/2023 11:44:09 02/06/2023 12:30:59 Diabetes mellitus 15374266 E11.9 better but still up will start her on glimepirid e and rechk in 4 month Hyperglycemia 43856846 R 73.9 will check a1c non fasting is 211 lab is pending Hypothyroidism 52560955 E03.9 will refill now tsh Type 2 greta betes mellitus 54418573 E11.9 she is doing well on the glypizide Osteoarthr itis of joint of right shoulder region 4935153169 30030 M19.011 having ongoing pain and is getting worse [id number] Ernie Aguilera [facility] [address] [facility] [facility] [place] [address] 01/17/2024 15:31:51 01/20/2024 17:02:52 Osteoarthritis of knee 473180979 M17.11 derrek inj done for right knee well tolerated [id number] Ernie Aguilera [facility] [address] [facility],[place] [address] 10/20/2024 15:59:58 10/21/2024 08:14:41 Hypothyroidism 77763034 E03.9 will refill now tsh Type 2 greta betes mellitus 52929651 E11.9 a1c is 8.9 metformin not tolerated we will give samples of farxiga 5-10mg samples Osteoarthr itis of shoulder region 89354647 M19.019 stable Degenerati on of lumbar intervertebral disc 99517058 M51.36 stable Degenerati on of cervical intervertebral disc 00821144 M50.30 cont her PT exercises and heat as Vitamin D deficiency 347 28951 E55.9 40 and Depression screening 171 514983 Z13.31 neg [id number] Ernie Aguilera [facility] [address] [facility],[place] [address] 02/02/2025 15:42:41 02/02/2025 16:39:52 Type 2 diabetes mellitus 31266841 E11.9 a1c is 8.9 metformin not tolerated we will give samples of farxiga 5-10mg samples Vitamin D deficiency 347 53284 E55.9 40 and Depression screening 171 984641 Z13.31 neg Onychomyco sis of toenails 880499452 E11.69 B35.1 [id number] [id number] Ernie Aguilera DO [facility] [address] [facility],[place] [address] 06/07/2025 15:52:57 06/07/2025 16:50:02 Depression screening 242813641 Z13.31 neg Type 2 greta betes mellitus 74990091 E11.9 a1c is pending was at 8.9tolerat es samples of farxiga 5-10mg samples Diabetes mellitus 522916 09 E11.9 a1c is 8.9 Hypothyroidism 77008591 E03.9 will refill now tsh Onychomyco sis of toenails 360470503 E11.9 B35.1 E11.69 77122603 Vitamin D deficiency 347 36678 E55.9 40 and Health Concerns Section Related Observation LastModified by Organization Detai ls LastModified Time None Recorded Concern Status LastModified by Organization Details LastModified Time None Recorded Advance Directives Directive None Recorded Payers Insurance Date Sequence Insurance Name Policy Number Policy Prater Covered Member ID Prater Member ID Guarantor Name 10/20/2024 1 [facility] [id number] Trena Gongora [id number] Trena Gongora 06/04/2025 1 [employer] (MEDICARE REPLACEMENT/ ADVANTAGE - HMO) [id number] Trena Gongora [id number] Trena Gongora Notes Date Note Type Note Provider Name and Address Organization Details Recorded Time 02/07/20 23 text/htm l ROS as noted in the HPI her for rechk and is doing ok relates that she is noting her glypixide is helping bring her sugars downm she has noticeddoing ok overall Ernie Aguilera DO [address] [facility], [place], [address], [facility], [place], operated by [facility] 02/06/2023 12:27:38 01/17/20 24 text/htm l ROS as noted in the HPI here for derrek inj to the right knee for known djd Ernie Aguilera DO [address] [place], [address], [facility], [place], operated by [facility] 01/17/2024 15:53:53 10/21/19 25 text/htm l Care Management - DiabetesReported by PatientHPIFor self care, patient reportsseeing eye doctor yearly for dilated eye exam,checking feet regularly,normal range of home blood sugars (in the low 100s), andno side effects from medications. For associated symptoms, patient reportssymptoms are usually well controlled,no fatigue,no dizziness,no excessive sweating,no headaches,no confusion,no increased thirst,no increased appetite,no increased urination,no blurred vision,no numbness of feet, andno calluses on feet. Back PainReported by PatientHPIFor location, patient reportspain is not radiating. For severity, patient reportsimproving. For associated symptoms, patient reportsno fever,no weak limbs,no numbness of the legs/feet,no tingling,no incontinence,no shortness of breath,no unintentional weight loss,no chills,no night sweats,no gait instability,no bowel/bladder symptoms, andno recent increase in stress. For previous injury, patient reportsno prior injury to backandno prior malignancy. Care Management - Acquired HypothyroidismReported by PatientCare ManagementFor medication education, patient reportsunderstands administration,understands effect of concurrent medications,understands missed doses, andunderstands consequences of noncompliance.Interim HistoryFor associated symptoms, patient reportsno abnormal weight gain,no tiredness,no dry skin,no cold intolerance,no constipation,no diarrhea, andno goiter.ROS as noted in the HPI a1c is 8.9 metformin was not tolerated and stopped 3 days ago Ernie Aguilera, DO [address] [place], [address], [facility], [place], operated by [facility] 10/20/2024 16:40:12 02/03/20 25 text/htm l Care Management - DiabetesReported by PatientHPIFor self care, patient reportsseeing eye doctor yearly for dilated eye exam,checking feet regularly,normal range of home blood sugars (in the low 100s), andno side effects from medications. For associated symptoms, patient reportssymptoms are usually well controlled,no fatigue,no dizziness,no excessive sweating,no headaches,no confusion,no increased thirst,no increased appetite,no increased urination,no blurred vision,no numbness of feet, andno calluses on feet. Care Management - Acquired HypothyroidismReported by PatientCare ManagementFor medication education, patient reportsunderstands administration,understands effect of concurrent medications,understands missed doses, andunderstands consequences of noncompliance.Interim HistoryFor associated symptoms, patient reportsno abnormal weight gain,no tiredness,no dry skin,no cold intolerance,no constipation,no diarrhea, andno goiter. Care management - Vitamin D Deficiency/OsteoporosisRep orted by PatientInterim HistoryFor height, patient reportsheight stable. For fracture history, patient reportsno history of recent fracture. For associated symptoms, patient reportsno bone painandno history of kidney stones.ROS as noted in the HPI has had infection of her right great toerelates that this has been a problem for many months has turned dark and gotten brittleused otc antifungal but not going away Ernie Aguilera DO [address] [place] [address], [address], [facility], [place], operated by [facility] 02/02/2025 16:29:32 06/07/20 25 text/htm l Care Management - DiabetesReported by PatientHPIFor self care, patient reportsseeing eye doctor yearly for dilated eye exam,checking feet regularly,normal range of home blood sugars (in the low 100s), andno side effects from medications. For associated symptoms, patient reportssymptoms are usually well controlled,no fatigue,no dizziness,no excessive sweating,no headaches,no confusion,no increased thirst,no increased appetite,no increased urination,no blurred vision,no numbness of feet, andno calluses on feet.ROS as noted in the HPI here for dm managed Ernie Aguilera DO [address] [place] [address], [address], [facility] [place], operated by [facility] 06/07/2025 16:38:15 OBGyn Episode No OBEpisode recorded.
--- OUTSIDE RECORDS SUMMARY | 2025-06-08 19:30 | XMS_ITS | Continuity of Care Document ---
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 MUST MEET 2 OUT [...] D, 25-hydroxy , total, serum 2024 025 [facility], [address] [place] [address], [place], [address], 5 16:40:35 vitamin B12, serum 2024 025 [facility], [address] [place] [address], [address], 5 16:40:35 hemoglobin A1c, QN, blood 2024 025 [facility], [address] [place] [address], [address], 5 16:40:35 CMP, serum or plasma 2024 025 [facility], [address] [place] [address], [address], 5 16:40:35 CBC w/ auto diff 2024 025 [facility], [address] [place] [address], [address], 5 16:40:35 microalbum in, urine 2024 025 [facility], [address] [place] [address], [address], 5 16:40:36 lipid panel, blood 2024 025 [facility], [address] [place] [address], [address], 5 16:40:35 TSH, serum or plasma 2024 025 [facility], [address] [place] [address], [address], 5 16:40:35 Referral None recorded. Procedures None recorded. Surgeries None recorded. Imaging None recorded. Medication Orders None recorded. Patient TargetsNo targets recorded. Patient Instructions Encounter Date Encounter Id Patient Instructions Last Modified By Organization Details Last Modified Time 06/07/2025 [id number] hypothyroidism: care instructions Not available 06/07/2025 16:36:50 Reason for Referral None Reported. Problems Name Problem SNOMED Code Status Onset Date Resolution Date Notes Provider Name and Address Organization Details Recorded Time Vitamin D deficien cy 95663168 Active 2018 Karlee cha [place] - [facility] 5 10:29:51 Degenera tion of cervical interver tebral disc 62823883 [facility] 10:29:[facility] Osteoart hritis of knee 399487296 [facility] 5 10:29:51 Fracture of tibia AND fibula 194385618 Active 2018 Ernie Aguilera, DO [address] [place] [address], [address], [place] [facility] 9 12:27:09 Degenera tion of lumbar interver tebral disc 87807289 Active 2019 Ernie Aguilera, [address], [address], [facility] 0 11:42:26 Mood disorder 29604552 Active 2020 Ernie Aguilera, [address], [address], [place] [facility] 1 16:51:28 COVID-19 [id number] Completed 202103/06/2022 Ernie Aguilera, [address], [address], [facility] 2 10:51:05 Hypothyr oidism 24724064 [facility] 5 10:29:51 Hypergly cemia 01671322 [facility] 5 10:29:51 Type 2 diabetes mellitus 23172654 Active 2021 Karleeelio Mejía [facility] 5 10:29:51 Diabetes mellitus 85285778 Active 2021 Karlee cha [facility] 5 10:29:51 Injury of rotator cuff 730577015 Active 2022 Ernie Aguilera DO [address] [place] [address], [address], [facility] 3 13:57:48 Osteoart hritis of shoulder region 48570354 [facility] 20[facility] 5 10:29:51 Osteoart hritis of joint of right shoulder region 43157816090 9100 Active 2022 [facility] 5 10:29:51 Onychomy cosis of toenails 365853964 Active 2024 Ernie Aguilera DO [address] [place] [address], [address], [facility] 5 16:04:52 Problem Notes None recorded. Procedures Surgical History Date Name Laterality Status Provider Name and Address Organization Details Recorded Time 024 Corticosteroid Injection completed Ernie Aguilera DO [address] [place] [address], [phone], [facility] 01/17/2024 15:53:24 023 Colonoscopy completed Addy Aguilera [facility] 12/28/2022 15:19:27 023 Corticosteroid Injection completed Ernie Aguilera DO [address] [place] [address], [address], [facility] 09/17/2022 13:58:29 021 Corticosteroid Injection completed Ernie Aguilera DO [address] [place] [address], [address], [facility] 04/28/2021 16:42:04 020 Corticosteroid Injection completed Ernie Aguilera DO [address] [place] [address], [address], [facility] 05/09/2020 16:39:17 020 Corticosteroid Injection completed Ernie Aguilera DO [address] [place] [address], [address], [facility] 04/20/2020 14:21:04 019 Corticosteroid Injection completed Ernie Aguilera DO [address] [place], [address], [facility] 12/10/2018 15:30:32 019 Corticosteroid Injection completed Ernie Aguilera DO [address] [place], [address], [facility] 11/14/2018 15:35:54 Imaging Results None recorded. Procedure Notes None recorded. Medical Equipment None Reported. Allergies Allergen ID Allergen Name Allergen Category Reaction Reaction Severity Criticality Documentation Date Start Date Code Code System Note Provider Name and Address Organization Details Recorded Time 2804 erythromy barry medicatio n Not available Not available Not available 08/08/2018 4053 RxNorm Edilma Sterling [facility] 9 09:26:48 Medications Name Sig Start Date [...] Updated DateTime 5 157.48 cm 28.7 kg/m2 34900.2 8 g 67 /min 98 % 146/60 mm[Hg] Isabela Guzmaner [facility] 5 16:06:19 Social History Question Answer Notes LastModified by Organizat ion Details LastModified Time Tobacco Smoking Status [facility] 11:56:13 What Was The Date Of Your Most Recent Tobacco Screening? 06/07/2025 [email or web address] Information not available 06/07/2025 Sex: Female Functional Status Question Answer Note LastModified by Organization D etails LastModified Time Do you or have you ever used any other forms of tobacco or nicotine? No [email or web address] Information not available 11/09/2022 Mental Status None recorded. Family History Nothing Reported. Medical History No medical history recorded. Gynecological HistoryNo gynecological history recorded. Obstetrics History GPAL:G 0 P 0 0 0 0 Immunizations Vaccine Type Date Status Note Provider Nam e and Address Organization Details Recorded Time COVID-19, mRNA, LNP-S, PF, 100 mcg/0.5mL dose or 50 mcg/0.25mL dose 1 completed Ernie Aguilera DO [address] [place] [address], [address], [facility] 02/08/2021 12:03:56 COVID-19, mRNA, LNP-S, PF, 100 mcg/0.5mL dose or 50 mcg/0.25mL dose 1 completed Ernie Aguilera DO [address] [place] [address], [address], [facility] 02/08/2021 12:04:01 Influenza, split virus, quadrivalent, preservative 8 [facility] 11:56:08 Past Encounters Encounter ID Performer Location Encounter Start Date Encounter Closed Date Diagnosis/Indication Diagnosis SNOMED-CT Code Diagnosis ICD10 Code Diagnosis IMO Codes Diagnosis Note [id number] Ernie Aguilera DO [facility] [address] [facility],[place] [address] 06/07/2025 15:52:57 06/07/2025 16:50:02 Depression screening 535436862 Z13.31 neg Type 2 greta betes mellitus 83391219 E11.9 a1c is pending was at 8.9tolerat es samples of farxiga 5-10mg samples Diabetes mellitus 182134 09 E11.9 a1c is 8.9 Hypothyroidism 56866197 E03.9 will refill now tsh Onychomyco sis of toenails 378939197 E11.9 B35.1 E11.69 [id number] Vitamin D deficiency 347 40330 E55.9 40 and Health Concerns Section Related Observation LastModified by Organization Detai ls LastModified Time None Recorded Concern Status LastModified by Organization Details LastModified Time None Recorded Payers Encounter Date Sequence Insurance Name Policy Number Policy Prater Covered Member ID Prater Member ID Guarantor Name 06/07/2025 1 [employer] (MEDICARE REPLACEMENT/ ADVANTAGE - HMO) [id number] Trena Gongora [id number] Trena Gongora Notes Date Note Type Note Provider Name a nd Address Organization Details Recorded Time 5 text/html Care Management - DiabetesReported by PatientHPIFor self [...] the HPI here for dm managed Ernie Aguilera, [address] [facility], [place], [address], [facility] 06/07/2025 16:38:15 OBGyn Episode No OBEpisode recorded.
[2025-06-08 21:30] LABS: Microalbum/Creatinine Ratio Ur 19.1 ug/mg cr (<30)
[2025-06-09 07:14] LABS: Hemoglobin A1C 151.3866 umol/L
== END 2025-06-08 15:14 | disposition home or self-care (01) ==
LOC: HO.MANLDS 15:13
PROVIDERS: Visit Provider Internal Medicine
DX: E11.9 Type 2 diabetes mellitus without complications (principal); E03.9 Hypothyroidism, unspecified; E55.9 Vitamin D deficiency, unspecified
CPT/HCPCS: 36415; 80053; 80061; 82043; 82306; 82570; 82607; 83036; 84443; 85025